=== PATIENT | female | born 1970 | race Two or more races ===

== ENCOUNTER 2022-10-25 20:02 | Inpatient (IN) | payer MEDICAID, OTHER ==
[~2022-10-25] VITALS: Ht 167.6 cm; Wt 252.4 kg
[2022-10-25] MEDS ORDERED: IPRATROPIUM BROM 0.5 MG/2.5ML INH SOL NEB ONE (20:15)
[2022-10-25] MEDS ORDERED: ALBUTEROL SULF 2.5 MG/0.5ML(0.5%) NEB SOLN NEB ONE (20:15)
[2022-10-25] MEDS ORDERED: IOHEXOL 300 MG/ML 100ML BOTTLE IJ ONE (20:21)
[2022-10-25 20:55] LABS: Basophils # (auto) 0 10 ^3/uL (0-0.2); Eosinophils # (auto) 0.5 10 ^3/uL (0-0.8); Eosinophils % (auto) 5.3 % (0.0-7.0); Hemoglobin 14.4 g/dL (12.2-16.2); Lymphocytes # (auto) 1.5 10 ^3/uL (0.4-5.4); Mean Corpuscular Volume 81.4 fL (80.0-100.0); Neutrophils # (auto) 5.7 10 ^3/uL (1.6-8.6)
[2022-10-25 20:57] LABS: Basophils % (auto) 0.3 % (0.0-2.0); Hematocrit 44.8 % (36.0-46.0); Lymphocytes % (auto) 17.2 % (10.0-50.0); Mean Corpuscular Hemoglobin 26.2 pg (28.0-32.0); Mean Corpuscular Hgb Conc. 32.2 g/dL (32.0-36.0); Monocytes # (auto) 0.9 10 ^3/uL (0-1.3); Monocytes % (auto) 10.6 % (0.0-12.0); Neutrophils % (auto) 66.6 % (37.0-80.0); Nucleated Red Blood Cells % 0.1 %; Red Cell Distribution Width 15.3 % (11.8-14.3); White Blood Cell 8.6 10^3/uL (4.4-10.8)
[2022-10-25 21:03] LABS: Albumin 2.8 g/dL (3.4-5.0); Calcium 8.3 mg/dL (8.5-10.1); Potassium 4.1 mmol/L (3.5-5.1)
[2022-10-25 21:06] LABS: Bilirubin, Total 1.4 mg/dL (0.2-1.0); Total Protein 7.5 g/dL (6.4-8.2)
[2022-10-25 22:11] LABS: Urine Bacteria FEW /hpf (None Seen); Urine Blood 2+ /uL (Negative); Urine Mucus FEW (None Seen); Urine Specific Gravity 1.033 (1.001-1.035); Urine WBC 6 /hpf (0 - 5)
[2022-10-26] MEDS ORDERED: ONDANSETRON HCL 4 MG/2 ML VIAL IV PRN (04:00)
[2022-10-26] MEDS ORDERED: IPRATROPIUM BROM 0.5 MG/2.5ML INH SOL NEB PRN (04:00)
[2022-10-26] MEDS ORDERED: NITROGLYCERIN 0.4 MG SL TAB SL PRN (04:00)
[2022-10-26] MEDS ORDERED: ALBUTEROL SULF 2.5 MG/0.5ML(0.5%) NEB SOLN NEB PRN (04:00)
[2022-10-26] MEDS ORDERED: MORPHINE SULFATE INJ 2 MG/ml SYRG IV PRN ×2 (04:00)
[2022-10-26] MEDS ORDERED: ACETAMINOPHEN 325 MG TAB PO PRN (04:00)
[2022-10-26] MEDS ORDERED: DOCUSATE SOD 100 MG CAP PO PRN (04:00)
[2022-10-26 05:58] LABS: Basophils # (auto) 0 10 ^3/uL (0-0.2); Basophils % (auto) 0.3 % (0.0-2.0); Eosinophils # (auto) 0.4 10 ^3/uL (0-0.8); Lymphocytes # (auto) 1.1 10 ^3/uL (0.4-5.4); Lymphocytes % (auto) 11.6 % (10.0-50.0); Mean Corpuscular Hgb Conc. 31.4 g/dL (32.0-36.0); Monocytes # (auto) 1.1 10 ^3/uL (0-1.3); Nucleated Red Blood Cells % 0.1 %
[2022-10-26 06:00] LABS: Eosinophils % (auto) 4.5 % (0.0-7.0); Hematocrit 45.5 % (36.0-46.0); Hemoglobin 14.3 g/dL (12.2-16.2); Mean Corpuscular Hemoglobin 26.6 pg (28.0-32.0); Mean Corpuscular Volume 84.7 fL (80.0-100.0); Monocytes % (auto) 11.3 % (0.0-12.0); Neutrophils % (auto) 72.3 % (37.0-80.0); Red Blood Cells 5.37 10^6/uL (4.0-5.20); Red Cell Distribution Width 15.5 % (11.8-14.3); White Blood Cell 9.6 10^3/uL (4.4-10.8)
[2022-10-26] MEDS: SODIUM CHLOR 0.9% PF (SALINE LOCK) 10ML VIAL/SYR IV SCH ×3 (06:05→22:19)
[2022-10-26 06:29] LABS: Potassium 4.5 mmol/L (3.5-5.1)
[2022-10-26 06:35] LABS: Albumin 2.6 g/dL (3.4-5.0); BUN/Creatinine Ratio 24.1 (10.0-20.0); Bilirubin, Total 1.3 mg/dL (0.2-1.0); Total Protein 7.4 g/dL (6.4-8.2)
[2022-10-26 08:45] VITALS: BP 147/80
[2022-10-26] MEDS: FAMOTIDINE (10MG/ML) 2ML VL IV SCH ×2 (09:56→22:18)
[2022-10-26] MEDS: cefTRIAXone 1GM/50ML D5W 50 ML IV SCH (09:56)
[2022-10-26] MEDS ORDERED: ENOXAPARIN SOD 40 MG/0.4 ML SYRINGE SC SCH (10:00)
[2022-10-26] MEDS ORDERED: ENOXAPARIN SOD 100 MG/1 ML SYRINGE SC SCH (10:00)
[2022-10-26] MEDS: FUROSEMIDE 40 MG/4 ML VIAL IV SCH ×2 (10:03→22:18)
[2022-10-26] MEDS ORDERED: VANCOMYCIN PER PHARMACY 0 MG IV SCH (14:00)
[2022-10-26] MEDS: VANCOMYCIN 1GM/250ML 250 ML IV SCH ×2 (14:11→22:17)
[2022-10-26] MEDS ORDERED: VANCOMYCIN 500 MG in D5W 5% 100 ML IV SCH (22:00)
[2022-10-26] MEDS: HYDROcodone-ACET 5/325MG TAB PO PRN (22:18)
[2022-10-26] MEDS: NYSTATIN TOPICAL POWDER 15GM TOP SCH (22:18)
[2022-10-26] MEDS: ENOXAPARIN SOD 60 MG/0.6 ML SYRINGE SC SCH (22:18)
[2022-10-27] MEDS: SODIUM CHLOR 0.9% PF (SALINE LOCK) 10ML VIAL/SYR IV SCH ×2 (06:22→14:03)
[2022-10-27] MEDS: VANCOMYCIN 1GM/250ML 250 ML IV SCH ×3 (06:25→23:45)
[2022-10-27] MEDS: FUROSEMIDE 40 MG/4 ML VIAL IV SCH ×2 (08:10→23:44)
[2022-10-27] MEDS: ENOXAPARIN SOD 60 MG/0.6 ML SYRINGE SC SCH ×2 (08:10→23:43)
[2022-10-27] MEDS: cefTRIAXone 1GM/50ML D5W 50 ML IV SCH (08:10)
[2022-10-27] MEDS: FAMOTIDINE (10MG/ML) 2ML VL IV SCH ×2 (08:10→23:43)
[2022-10-27] MEDS: NYSTATIN TOPICAL POWDER 15GM TOP SCH (08:11)
[2022-10-27 13:51] LABS: Basophils # (auto) 0 10 ^3/uL (0-0.2); Eosinophils # (auto) 0.2 10 ^3/uL (0-0.8); Hemoglobin 13.5 g/dL (12.2-16.2)
[2022-10-27 13:54] LABS: Basophils % (auto) 0.3 % (0.0-2.0); Eosinophils % (auto) 3.1 % (0.0-7.0); Hematocrit 43.5 % (36.0-46.0); Lymphocytes # (auto) 0.7 10 ^3/uL (0.4-5.4); Lymphocytes % (auto) 9.3 % (10.0-50.0); Mean Corpuscular Hemoglobin 26.1 pg (28.0-32.0); Mean Corpuscular Hgb Conc. 31.1 g/dL (32.0-36.0); Mean Corpuscular Volume 83.9 fL (80.0-100.0); Monocytes # (auto) 0.9 10 ^3/uL (0-1.3); Monocytes % (auto) 11.6 % (0.0-12.0); Neutrophils # (auto) 5.8 10 ^3/uL (1.6-8.6); Neutrophils % (auto) 75.7 % (37.0-80.0); Nucleated Red Blood Cells % 0.2 %; Red Blood Cells 5.19 10^6/uL (4.0-5.20); Red Cell Distribution Width 15.3 % (11.8-14.3); White Blood Cell 7.7 10^3/uL (4.4-10.8)
[2022-10-27 14:13] LABS: Albumin 2.6 g/dL (3.4-5.0); Potassium 3.9 mmol/L (3.5-5.1)
[2022-10-27 14:18] LABS: BUN/Creatinine Ratio 14.3 (10.0-20.0); Bilirubin, Total 1.2 mg/dL (0.2-1.0); Total Protein 7.4 g/dL (6.4-8.2)
[2022-10-27 22:00] VITALS: BP 100/68
[2022-10-27 22:01] VITALS: BP 112/51
[2022-10-28] MEDS: NYSTATIN TOPICAL POWDER 15GM TOP SCH ×3 (00:01→22:20)
[2022-10-28] MEDS: VANCOMYCIN 1GM/250ML 250 ML IV SCH ×3 (06:02→22:18)
[2022-10-28] MEDS: SODIUM CHLOR 0.9% PF (SALINE LOCK) 10ML VIAL/SYR IV SCH ×4 (06:11→22:20)
[2022-10-28 08:00] VITALS: BP 139/70
[2022-10-28 09:00] VITALS: BP 115/53
[2022-10-28] MEDS: ENOXAPARIN SOD 60 MG/0.6 ML SYRINGE SC SCH ×2 (09:26→22:20)
[2022-10-28] MEDS: cefTRIAXone 1GM/50ML D5W 50 ML IV SCH (09:26)
[2022-10-28] MEDS: FUROSEMIDE 40 MG/4 ML VIAL IV SCH ×2 (09:27→22:20)
[2022-10-28] MEDS: FAMOTIDINE (10MG/ML) 2ML VL IV SCH ×2 (09:27→22:19)
[2022-10-28 13:00] VITALS: BP 110/53
[2022-10-28 17:00] VITALS: BP 117/65
[2022-10-28] MEDS: ALBUTEROL SULF 2.5 MG/0.5ML(0.5%) NEB SOLN NEB SCH (17:45)
[2022-10-28] MEDS: IPRATROPIUM BROM 0.5 MG/2.5ML INH SOL NEB SCH (17:45)
[2022-10-28 21:35] VITALS: BP 132/64
[2022-10-29 04:55] VITALS: BP 113/60
[2022-10-29] MEDS: VANCOMYCIN 1GM/250ML 250 ML IV SCH ×3 (05:57→22:19)
[2022-10-29] MEDS: SODIUM CHLOR 0.9% PF (SALINE LOCK) 10ML VIAL/SYR IV SCH ×3 (05:57→22:20)
[2022-10-29] MEDS: ALBUTEROL SULF 2.5 MG/0.5ML(0.5%) NEB SOLN NEB SCH ×3 (06:34→19:25)
[2022-10-29] MEDS: IPRATROPIUM BROM 0.5 MG/2.5ML INH SOL NEB SCH ×3 (06:34→19:25)
[2022-10-29 09:00] VITALS: BP 124/61
[2022-10-29] MEDS: FUROSEMIDE 40 MG/4 ML VIAL IV SCH ×2 (09:13→22:19)
[2022-10-29] MEDS: ENOXAPARIN SOD 60 MG/0.6 ML SYRINGE SC SCH ×2 (09:14→22:20)
[2022-10-29] MEDS: FAMOTIDINE (10MG/ML) 2ML VL IV SCH ×2 (09:14→22:20)
[2022-10-29] MEDS: cefTRIAXone 1GM/50ML D5W 50 ML IV SCH (09:15)
[2022-10-29] MEDS: NYSTATIN TOPICAL POWDER 15GM TOP SCH ×2 (10:00→22:20)
[2022-10-29 13:00] VITALS: BP 122/61
[2022-10-29] MEDS: HYDROcodone-ACET 5/325MG TAB PO PRN (14:35)
[2022-10-29 17:07] VITALS: BP 116/62
[2022-10-29 18:00] VITALS: BP 116/62
[2022-10-29 22:00] VITALS: BP 112/61
[2022-10-30 05:00] VITALS: BP 116/64
[2022-10-30] MEDS: VANCOMYCIN 1GM/250ML 250 ML IV SCH ×3 (05:42→22:00)
[2022-10-30] MEDS: SODIUM CHLOR 0.9% PF (SALINE LOCK) 10ML VIAL/SYR IV SCH ×3 (05:42→22:16)
[2022-10-30] MEDS: IPRATROPIUM BROM 0.5 MG/2.5ML INH SOL NEB SCH ×3 (06:42→18:27)
[2022-10-30] MEDS: ALBUTEROL SULF 2.5 MG/0.5ML(0.5%) NEB SOLN NEB SCH ×3 (06:43→18:27)
[2022-10-30 09:11] VITALS: BP 121/60
[2022-10-30] MEDS: FAMOTIDINE (10MG/ML) 2ML VL IV SCH ×2 (09:57→22:00)
[2022-10-30] MEDS: FUROSEMIDE 40 MG/4 ML VIAL IV SCH ×2 (09:57→22:00)
[2022-10-30] MEDS: cefTRIAXone 1GM/50ML D5W 50 ML IV SCH (09:57)
[2022-10-30] MEDS: NYSTATIN TOPICAL POWDER 15GM TOP SCH ×2 (09:58→22:55)
[2022-10-30] MEDS: HYDROcodone-ACET 5/325MG TAB PO PRN ×2 (09:58→23:52)
[2022-10-30] MEDS: ENOXAPARIN SOD 60 MG/0.6 ML SYRINGE SC SCH ×2 (09:58→22:16)
[2022-10-30 13:07] VITALS: BP 115/62
[2022-10-30 17:29] VITALS: BP 121/67
[2022-10-30 23:38] VITALS: BP 134/64
[2022-10-31 05:05] VITALS: BP 122/67
[2022-10-31] MEDS: SODIUM CHLOR 0.9% PF (SALINE LOCK) 10ML VIAL/SYR IV SCH ×2 (05:12→14:00)
[2022-10-31] MEDS: VANCOMYCIN 1GM/250ML 250 ML IV SCH ×2 (05:12→14:00)
[2022-10-31] MEDS: ALBUTEROL SULF 2.5 MG/0.5ML(0.5%) NEB SOLN NEB SCH ×3 (06:57→17:49)
[2022-10-31] MEDS: IPRATROPIUM BROM 0.5 MG/2.5ML INH SOL NEB SCH ×3 (06:57→17:49)
[2022-10-31] MEDS: HYDROcodone-ACET 5/325MG TAB PO PRN (07:16)
[2022-10-31 08:30] VITALS: BP 111/59
[2022-10-31] MEDS ORDERED: PRED20TA2 PO (09:41)
[2022-10-31] MEDS ORDERED: MYC15TP TOP ×2 (09:41)
[2022-10-31] MEDS ORDERED: LEVO500T31 PO (09:41)
[2022-10-31] MEDS: FUROSEMIDE 40 MG/4 ML VIAL IV SCH (10:00)
[2022-10-31] MEDS: cefTRIAXone 1GM/50ML D5W 50 ML IV SCH (10:00)
[2022-10-31] MEDS: ENOXAPARIN SOD 60 MG/0.6 ML SYRINGE SC SCH (10:00)
[2022-10-31] MEDS: FAMOTIDINE (10MG/ML) 2ML VL IV SCH (10:00)
[2022-10-31 13:00] VITALS: BP 125/77
[2022-10-31] MEDS: NYSTATIN TOPICAL POWDER 15GM TOP SCH (13:30)
[2022-10-31 14:24] VITALS: BP 125/77
[2022-10-31 17:00] VITALS: BP 132/66
== END 2022-10-31 20:35 | disposition home or self-care (01) | DRG 383 ==
LOC: EDBD 20:02 → EDSEX 20:02 → ER 20:02 → OVERFLOW 10-26 04:02 → EAST 10-27 21:00
PROVIDERS: ADMIT Nurse Practitioner Family; ATTEND Family Medicine
PROC: 05HD33Z Insertion of Infusion Device into Right Cephalic Vein, Percutaneous Approach (ICD-10-PCS; principal; 2022-10-27)
PROC: B54MZZA Ultrasonography of Right Upper Extremity Veins, Guidance (ICD-10-PCS; 2022-10-27)
DX: L03.311 Cellulitis of abdominal wall (principal); J96.01 Acute respiratory failure with hypoxia; J15.6 Pneumonia due to other Gram-negative bacteria; L03.115 Cellulitis of right lower limb; E88.09 Other disorders of plasma-protein metabolism, not elsewhere classified; L03.116 Cellulitis of left lower limb; Z68.45 Body mass index [BMI] 70 or greater, adult; I50.9 Heart failure, unspecified; E66.01 Morbid (severe) obesity due to excess calories; J45.909 Unspecified asthma, uncomplicated; J98.11 Atelectasis; Z20.822 Contact with and (suspected) exposure to COVID-19; R10.9 Unspecified abdominal pain; Z74.01 Bed confinement status
CPT/HCPCS: 36415; 36600; 71045; 74018; 80053; 80202; 81001; 82805; 82962; 83690; 83880; 84484; 85025; 87426; 93005; 93970; 94640; G0378; J0696; J3490

== ENCOUNTER 2022-11-01 13:17 | Inpatient (IN) | payer MEDICAID ==
[~2022-11-01] VITALS: Ht 175.3 cm; Wt 204.9 kg
[~2022-11-01 13:17] MED LIST: LEVO500T31 PO; MYC15TP TOP; PRED20TA2 PO
[2022-11-01] MEDS ORDERED: SODIUM CHLORIDE 0.9% IV ONE (14:15)
[2022-11-01 14:43] LABS: Basophils # (auto) 0 10 ^3/uL (0-0.2); Monocytes # (auto) 0.8 10 ^3/uL (0-1.3)
[2022-11-01 14:45] LABS: Basophils % (auto) 0.6 % (0.0-2.0); Eosinophils # (auto) 0.4 10 ^3/uL (0-0.8); Lymphocytes # (auto) 1.1 10 ^3/uL (0.4-5.4); Lymphocytes % (auto) 14.2 % (10.0-50.0); Mean Corpuscular Hemoglobin 26.6 pg (28.0-32.0); Mean Corpuscular Hgb Conc. 32.6 g/dL (32.0-36.0); Mean Corpuscular Volume 81.5 fL (80.0-100.0); Monocytes % (auto) 10.3 % (0.0-12.0); Neutrophils # (auto) 5.1 10 ^3/uL (1.6-8.6); Neutrophils % (auto) 68.9 % (37.0-80.0); Nucleated Red Blood Cells % 0.2 %; Red Blood Cells 5.28 10^6/uL (4.0-5.20); White Blood Cell 7.4 10^3/uL (4.4-10.8)
[2022-11-01 14:59] LABS: INR 1.11 (0.9-1.15); Partial Thromboplastin Time 29.6 sec (24.6-33.4)
[2022-11-01] MEDS ORDERED: PIPERACILLIN-TAZOB 3.375GM 100 ML IV ONE (15:00)
[2022-11-01] MEDS ORDERED: VANCOMYCIN PER PHARMACY 0 MG IV SCH (15:15)
[2022-11-01 15:35] LABS: Albumin 2.9 g/dL (3.4-5.0); Calcium 9.4 mg/dL (8.5-10.1); Potassium 4.2 mmol/L (3.5-5.1)
[2022-11-01 15:38] LABS: Bilirubin, Total 1.5 mg/dL (0.2-1.0); Total Protein 8.3 g/dL (6.4-8.2)
[2022-11-01] MEDS: VANCOMYCIN 1GM/250ML 250 ML IV SCH ×2 (17:10→18:23)
[2022-11-01] MEDS ORDERED: NYSTATIN TOPICAL POWDER 15GM TOP ONE (19:15)
[2022-11-01] MEDS: PIPERACILLIN-TAZOB 3.375GM 100 ML IV SCH (21:13)
[2022-11-01] MEDS ORDERED: SODIUM CHLORIDE 0.9% 1,000 ML IV SCH (22:00)
[2022-11-01] MEDS ORDERED: DOCUSATE SOD 100 MG CAP PO PRN (22:00)
[2022-11-01] MEDS ORDERED: ALBUTEROL SULF 2.5 MG/0.5ML(0.5%) NEB SOLN NEB PRN (22:00)
[2022-11-01] MEDS ORDERED: HYDROcodone-ACET 5/325MG TAB PO PRN (22:00)
[2022-11-01] MEDS ORDERED: IPRATROPIUM BROM 0.5 MG/2.5ML INH SOL NEB PRN (22:00)
[2022-11-01] MEDS ORDERED: VANCOMYCIN 1GM/250ML 250 ML IV SCH (22:00)
[2022-11-01] MEDS ORDERED: ONDANSETRON HCL 4 MG/2 ML VIAL IV PRN (22:00)
[2022-11-01 22:39] VITALS: BP 105/47
[2022-11-01] MEDS: methylPREDNISolone SOD SUCC 40 MG/ML VL IV SCH (22:42)
[2022-11-01] MEDS: HEPARIN SODIUM (PORCINE) 5000 UNITS/ML 1ML VIAL SC SCH (22:43)
[2022-11-01] MEDS: FAMOTIDINE (10MG/ML) 2ML VL IV SCH (22:43)
[2022-11-02] MEDS ORDERED: NITROGLYCERIN 0.4 MG SL TAB SL PRN
[2022-11-02] MEDS ORDERED: MORPHINE SULFATE INJ 2 MG/ml SYRG IV PRN
[2022-11-02] MEDS ORDERED: FUROSEMIDE 40 MG/4 ML VIAL IV ONE
[2022-11-02] MEDS: VANCOMYCIN 1GM/250ML 250 ML IV SCH ×3 (01:10→18:44)
[2022-11-02 02:16] LABS: Urine Bacteria FEW /hpf (None Seen); Urine Blood 2+ /uL (Negative); Urine Specific Gravity 1.007 (1.001-1.035); Urine WBC 3 /hpf (0 - 5)
[2022-11-02] MEDS: methylPREDNISolone SOD SUCC 40 MG/ML VL IV SCH (05:33)
[2022-11-02] MEDS: PIPERACILLIN-TAZOB 3.375GM 100 ML IV SCH ×4 (05:38→21:42)
[2022-11-02 06:15] LABS: Eosinophils # (auto) 0 10 ^3/uL (0-0.8); Lymphocytes % (auto) 4.8 % (10.0-50.0); Monocytes # (auto) 0.2 10 ^3/uL (0-1.3); White Blood Cell 7.4 10^3/uL (4.4-10.8)
[2022-11-02 06:17] LABS: Basophils # (auto) 0 10 ^3/uL (0-0.2); Basophils % (auto) 0.1 % (0.0-2.0); Eosinophils % (auto) 0.2 % (0.0-7.0); Hematocrit 44.5 % (36.0-46.0); Hemoglobin 14.3 g/dL (12.2-16.2); Lymphocytes # (auto) 0.4 10 ^3/uL (0.4-5.4); Mean Corpuscular Hemoglobin 26.4 pg (28.0-32.0); Mean Corpuscular Volume 82.5 fL (80.0-100.0); Monocytes % (auto) 2.5 % (0.0-12.0); Neutrophils # (auto) 6.9 10 ^3/uL (1.6-8.6); Neutrophils % (auto) 92.4 % (37.0-80.0); Nucleated Red Blood Cells % 0.1 %; Red Cell Distribution Width 14.8 % (11.8-14.3)
[2022-11-02 06:29] LABS: Albumin 2.7 g/dL (3.4-5.0); Calcium 9.2 mg/dL (8.5-10.1); Potassium 4.2 mmol/L (3.5-5.1)
[2022-11-02 06:34] LABS: BUN/Creatinine Ratio 15.4 (10.0-20.0); Bilirubin, Total 1.4 mg/dL (0.2-1.0); Total Protein 7.8 g/dL (6.4-8.2)
[2022-11-02] MEDS: HEPARIN SODIUM (PORCINE) 5000 UNITS/ML 1ML VIAL SC SCH ×2 (09:57→23:18)
[2022-11-02] MEDS: FAMOTIDINE (10MG/ML) 2ML VL IV SCH ×2 (09:57→23:08)
[2022-11-02] MEDS ORDERED: FUROSEMIDE 40 MG/4 ML VIAL IV SCH ×2 (10:00→22:00)
[2022-11-02 22:00] VITALS: BP 121/55
[2022-11-02] MEDS ORDERED: IBUP800T26 PO (23:12)
[2022-11-02] MEDS ORDERED: ERGO1CAP12 PO (23:12)
[2022-11-03] MEDS: VANCOMYCIN 1GM/250ML 250 ML IV SCH ×2 (01:20→09:18)
[2022-11-03] MEDS: PIPERACILLIN-TAZOB 3.375GM 100 ML IV SCH ×3 (03:34→20:00)
[2022-11-03 05:00] VITALS: BP 122/58
[2022-11-03] MEDS ORDERED: PNEUMOCOCCAL VACC POLYS 25 MCG/0.5 ML VIAL IM SCH (05:45)
[2022-11-03 07:30] VITALS: BP 134/73
[2022-11-03 09:00] VITALS: BP 134/73
[2022-11-03] MEDS ORDERED: ENOXAPARIN SOD 40 MG/0.4 ML SYRINGE SC SCH (10:00)
[2022-11-03 13:00] VITALS: BP 130/58
[2022-11-03 14:33] LABS: Hepatitis C Antibody Negative (Negative)
[2022-11-03] MEDS: ASPirin 81 mg TAB PO SCH (15:00)
[2022-11-03] MEDS: methylPREDNISolone SOD SUCC 40 MG/ML VL IV SCH (15:00)
[2022-11-03] MEDS: FUROSEMIDE INJECTION 100 MG in D5W 5% 100 ML IV SCH (15:05)
[2022-11-03 16:48] VITALS: BP 123/77
[2022-11-03] MEDS: DOXYCYCLINE 100 MG TAB/CAP PO SCH (21:27)
[2022-11-03 22:00] VITALS: BP 121/67
[2022-11-04] VITALS (8 sets, daily range): BP systolic 124–134; BP diastolic 53–75
[2022-11-04] MEDS: PIPERACILLIN-TAZOB 3.375GM 100 ML IV SCH ×4 (02:46→20:37)
[2022-11-04] MEDS: FUROSEMIDE INJECTION 100 MG in D5W 5% 100 ML IV SCH ×2 (03:03→10:03)
[2022-11-04 09:38] LABS: Basophils # (auto) 0 10 ^3/uL (0-0.2); Basophils % (auto) 0.2 % (0.0-2.0); Eosinophils # (auto) 0 10 ^3/uL (0-0.8); Lymphocytes # (auto) 1.2 10 ^3/uL (0.4-5.4); Neutrophils # (auto) 6.6 10 ^3/uL (1.6-8.6); White Blood Cell 8.8 10^3/uL (4.4-10.8)
[2022-11-04 09:44] LABS: Eosinophils % (auto) 0.2 % (0.0-7.0); Hematocrit 44.9 % (36.0-46.0); Hemoglobin 14.2 g/dL (12.2-16.2); Lymphocytes % (auto) 13.4 % (10.0-50.0); Mean Corpuscular Hemoglobin 26.5 pg (28.0-32.0); Mean Corpuscular Hgb Conc. 31.6 g/dL (32.0-36.0); Mean Corpuscular Volume 83.6 fL (80.0-100.0); Neutrophils % (auto) 75.2 % (37.0-80.0); Nucleated Red Blood Cells % 0.1 %; Red Blood Cells 5.36 10^6/uL (4.0-5.20); Red Cell Distribution Width 15.7 % (11.8-14.3)
[2022-11-04] MEDS: DOXYCYCLINE 100 MG TAB/CAP PO SCH ×2 (10:17→20:37)
[2022-11-04] MEDS: ASPirin 81 mg TAB PO SCH (10:17)
[2022-11-04] MEDS: methylPREDNISolone SOD SUCC 40 MG/ML VL IV SCH (10:18)
[2022-11-04 12:17] LABS: Potassium 4.8 mmol/L (3.5-5.1)
[2022-11-04 12:19] LABS: BUN/Creatinine Ratio 13.8 (10.0-20.0); Calcium 9.2 mg/dL (8.5-10.1)
[2022-11-04] MEDS: ACETAMINOPHEN 325 MG TAB PO PRN (20:37)
[2022-11-05] MEDS: PIPERACILLIN-TAZOB 3.375GM 100 ML IV SCH ×4 (01:46→20:53)
[2022-11-05 04:45] VITALS: BP 120/72
[2022-11-05] MEDS: FUROSEMIDE INJECTION 100 MG in D5W 5% 100 ML IV SCH ×2 (05:15→12:48)
[2022-11-05 06:37] LABS: Basophils # (auto) 0 10 ^3/uL (0-0.2); Basophils % (auto) 0.2 % (0.0-2.0); Eosinophils # (auto) 0 10 ^3/uL (0-0.8); Eosinophils % (auto) 0.5 % (0.0-7.0); Hematocrit 43.9 % (36.0-46.0); Hemoglobin 13.8 g/dL (12.2-16.2); Lymphocytes # (auto) 1.2 10 ^3/uL (0.4-5.4); Lymphocytes % (auto) 16.6 % (10.0-50.0); Mean Corpuscular Hemoglobin 26.2 pg (28.0-32.0); Mean Corpuscular Hgb Conc. 31.5 g/dL (32.0-36.0); Mean Corpuscular Volume 83.2 fL (80.0-100.0); Monocytes # (auto) 1.2 10 ^3/uL (0-1.3); Monocytes % (auto) 16.5 % (0.0-12.0); Neutrophils # (auto) 4.8 10 ^3/uL (1.6-8.6); Neutrophils % (auto) 66.2 % (37.0-80.0); Nucleated Red Blood Cells % 0.1 %; Red Blood Cells 5.28 10^6/uL (4.0-5.20); Red Cell Distribution Width 15.5 % (11.8-14.3); White Blood Cell 7.3 10^3/uL (4.4-10.8)
[2022-11-05 06:45] LABS: Calcium 8.7 mg/dL (8.5-10.1); Potassium 3.6 mmol/L (3.5-5.1)
[2022-11-05] MEDS: ASPirin 81 mg TAB PO SCH (08:40)
[2022-11-05] MEDS: methylPREDNISolone SOD SUCC 40 MG/ML VL IV SCH ×2 (08:40→10:00)
[2022-11-05] MEDS: DOXYCYCLINE 100 MG TAB/CAP PO SCH ×2 (08:40→20:53)
[2022-11-05] MEDS ORDERED: POTASSIUM EFFERVESENT TAB 25 MEQ PO ONE (09:15)
[2022-11-05] MEDS: METOPROLOL SUCCINATE XL 50 MG TAB PO SCH (10:49)
[2022-11-05 13:00] VITALS: BP 144/74
[2022-11-05 16:21] VITALS: BP_SYST 122; BP_SYST 143; BP_DIAS 71; BP_DIAS 81
[2022-11-05 20:00] VITALS: BP 128/72
[2022-11-05] MEDS: SACUBITRIL-VALSARTAN 24mg/26mg TAB PO SCH (20:53)
[2022-11-05 22:00] VITALS: BP 128/72
[2022-11-06] MEDS: PIPERACILLIN-TAZOB 3.375GM 100 ML IV SCH ×2 (02:30→08:24)
[2022-11-06 05:00] VITALS: BP 136/64
[2022-11-06] MEDS: EMPAGLIFLOZIN 10 MG TAB PO SCH (06:13)
[2022-11-06] MEDS: FUROSEMIDE INJECTION 100 MG in D5W 5% 100 ML IV SCH (06:14)
[2022-11-06 08:00] VITALS: BP 136/64
[2022-11-06 08:59] LABS: Basophils # (auto) 0 10 ^3/uL (0-0.2); Basophils % (auto) 0.2 % (0.0-2.0); Eosinophils # (auto) 0.2 10 ^3/uL (0-0.8); Eosinophils % (auto) 1.6 % (0.0-7.0); Hematocrit 47.5 % (36.0-46.0); Hemoglobin 14.9 g/dL (12.2-16.2); Lymphocytes # (auto) 1.7 10 ^3/uL (0.4-5.4); Lymphocytes % (auto) 17.5 % (10.0-50.0); Mean Corpuscular Hemoglobin 26.1 pg (28.0-32.0); Mean Corpuscular Hgb Conc. 31.4 g/dL (32.0-36.0); Monocytes # (auto) 1.2 10 ^3/uL (0-1.3); Monocytes % (auto) 12.6 % (0.0-12.0); Neutrophils # (auto) 6.5 10 ^3/uL (1.6-8.6); Neutrophils % (auto) 68.1 % (37.0-80.0); Nucleated Red Blood Cells % 0.2 %; Red Blood Cells 5.73 10^6/uL (4.0-5.20); Red Cell Distribution Width 15.5 % (11.8-14.3); White Blood Cell 9.5 10^3/uL (4.4-10.8)
[2022-11-06 09:00] VITALS: BP 126/72
[2022-11-06 09:12] LABS: BUN/Creatinine Ratio 16.4 (10.0-20.0)
[2022-11-06] MEDS: methylPREDNISolone SOD SUCC 40 MG/ML VL IV SCH (10:05)
[2022-11-06] MEDS: METOPROLOL SUCCINATE XL 50 MG TAB PO SCH (10:06)
[2022-11-06] MEDS: ASPirin 81 mg TAB PO SCH (10:06)
[2022-11-06] MEDS: SACUBITRIL-VALSARTAN 24mg/26mg TAB PO SCH ×2 (10:07→21:15)
[2022-11-06 13:00] VITALS: BP 116/65
[2022-11-06] MEDS: FLORASTOR (S. BOULARDII) 250 MG CAP PO SCH (14:18)
[2022-11-06] MEDS: FUROSEMIDE 40 MG/4 ML VIAL IV SCH (18:12)
[2022-11-06 22:00] VITALS: BP 129/66
[2022-11-07] VITALS (7 sets, daily range): BP systolic 114–136; BP diastolic 61–78
[2022-11-07] MEDS: FUROSEMIDE 40 MG/4 ML VIAL IV SCH ×2 (05:59→18:35)
[2022-11-07] MEDS: EMPAGLIFLOZIN 10 MG TAB PO SCH (05:59)
[2022-11-07 06:46] LABS: BUN/Creatinine Ratio 21.8 (10.0-20.0); Magnesium 2.2 mg/dL (1.6-2.6); Potassium 3.6 mmol/L (3.5-5.1)
[2022-11-07] MEDS: methylPREDNISolone SOD SUCC 40 MG/ML VL IV SCH (10:07)
[2022-11-07] MEDS: SACUBITRIL-VALSARTAN 24mg/26mg TAB PO SCH ×2 (10:07→22:01)
[2022-11-07] MEDS: METOPROLOL SUCCINATE XL 50 MG TAB PO SCH (10:10)
[2022-11-07] MEDS: ASPirin 81 mg TAB PO SCH (10:12)
[2022-11-07] MEDS: FLORASTOR (S. BOULARDII) 250 MG CAP PO SCH (10:12)
[2022-11-08] VITALS (8 sets, daily range): BP systolic 114–134; BP diastolic 61–69
[2022-11-08] MEDS: FUROSEMIDE 40 MG/4 ML VIAL IV SCH ×2 (05:44→18:04)
[2022-11-08] MEDS: EMPAGLIFLOZIN 10 MG TAB PO SCH (08:15)
[2022-11-08] MEDS: ASPirin 81 mg TAB PO SCH (09:42)
[2022-11-08] MEDS: FLORASTOR (S. BOULARDII) 250 MG CAP PO SCH (09:43)
[2022-11-08] MEDS: SACUBITRIL-VALSARTAN 24mg/26mg TAB PO SCH ×2 (09:43→22:06)
[2022-11-08] MEDS: METOPROLOL SUCCINATE XL 50 MG TAB PO SCH (09:44)
[2022-11-08] MEDS: methylPREDNISolone SOD SUCC 40 MG/ML VL IV SCH (09:45)
[2022-11-09] MEDS: ACETAMINOPHEN 325 MG TAB PO PRN (00:31)
[2022-11-09 05:00] VITALS: BP_SYST 122; BP_SYST 131; BP_DIAS 66; BP_DIAS 74
[2022-11-09] MEDS: FUROSEMIDE 40 MG/4 ML VIAL IV SCH ×2 (06:06→18:06)
[2022-11-09] MEDS: EMPAGLIFLOZIN 10 MG TAB PO SCH (06:26)
[2022-11-09 09:00] VITALS: BP 140/77
[2022-11-09] MEDS: SACUBITRIL-VALSARTAN 24mg/26mg TAB PO SCH ×2 (09:36→21:55)
[2022-11-09] MEDS: FLORASTOR (S. BOULARDII) 250 MG CAP PO SCH (09:36)
[2022-11-09] MEDS: METOPROLOL SUCCINATE XL 50 MG TAB PO SCH (09:37)
[2022-11-09] MEDS: ASPirin 81 mg TAB PO SCH (09:38)
[2022-11-09] MEDS: methylPREDNISolone SOD SUCC 40 MG/ML VL IV SCH (09:38)
[2022-11-09 09:55] LABS: BUN/Creatinine Ratio 26.6 (10.0-20.0); Calcium 9.1 mg/dL (8.5-10.1); Magnesium 2.2 mg/dL (1.6-2.6); Potassium 4.1 mmol/L (3.5-5.1)
[2022-11-09 12:57] VITALS: BP 134/68
[2022-11-09 16:59] VITALS: BP 145/89
[2022-11-09 22:00] VITALS: BP 117/63
[2022-11-10 05:00] VITALS: BP 128/76
[2022-11-10] MEDS: FUROSEMIDE 40 MG/4 ML VIAL IV SCH ×2 (06:06→17:59)
[2022-11-10] MEDS: EMPAGLIFLOZIN 10 MG TAB PO SCH (06:54)
[2022-11-10] MEDS: METOPROLOL SUCCINATE XL 50 MG TAB PO SCH (09:14)
[2022-11-10] MEDS: FLORASTOR (S. BOULARDII) 250 MG CAP PO SCH (09:14)
[2022-11-10 09:15] VITALS: BP 134/74
[2022-11-10] MEDS: methylPREDNISolone SOD SUCC 40 MG/ML VL IV SCH (09:15)
[2022-11-10] MEDS: ASPirin 81 mg TAB PO SCH (09:15)
[2022-11-10] MEDS: SACUBITRIL-VALSARTAN 24mg/26mg TAB PO SCH ×2 (09:15→21:47)
[2022-11-10 13:00] VITALS: BP 132/76
[2022-11-10 17:00] VITALS: BP 131/76
[2022-11-10 21:30] VITALS: BP 133/71
[2022-11-11 05:00] VITALS: BP 140/79
[2022-11-11] MEDS: FUROSEMIDE 40 MG/4 ML VIAL IV SCH ×2 (06:14→18:03)
[2022-11-11] MEDS: EMPAGLIFLOZIN 10 MG TAB PO SCH (07:17)
[2022-11-11 08:54] VITALS: BP 135/73
[2022-11-11] MEDS: FLORASTOR (S. BOULARDII) 250 MG CAP PO SCH (09:29)
[2022-11-11] MEDS: SACUBITRIL-VALSARTAN 24mg/26mg TAB PO SCH ×2 (09:29→21:16)
[2022-11-11] MEDS: ASPirin 81 mg TAB PO SCH (09:29)
[2022-11-11] MEDS: METOPROLOL SUCCINATE XL 50 MG TAB PO SCH (09:30)
[2022-11-11 13:18] VITALS: BP 127/68
[2022-11-11 17:04] VITALS: BP 109/66
[2022-11-11 22:00] VITALS: BP 129/70
[2022-11-12 05:00] VITALS: BP 127/79
[2022-11-12] MEDS: FUROSEMIDE 40 MG/4 ML VIAL IV SCH ×2 (06:23→18:00)
[2022-11-12] MEDS: EMPAGLIFLOZIN 10 MG TAB PO SCH (06:23)
[2022-11-12 08:30] VITALS: BP 127/68
[2022-11-12] MEDS: METOPROLOL SUCCINATE XL 50 MG TAB PO SCH (10:00)
[2022-11-12] MEDS: FLORASTOR (S. BOULARDII) 250 MG CAP PO SCH (10:00)
[2022-11-12] MEDS: ASPirin 81 mg TAB PO SCH (10:00)
[2022-11-12] MEDS: SACUBITRIL-VALSARTAN 24mg/26mg TAB PO SCH ×2 (10:00→21:39)
[2022-11-12 10:11] LABS: Potassium 4.7 mmol/L (3.5-5.1)
[2022-11-12 11:10] LABS: BUN/Creatinine Ratio 30.1 (10.0-20.0); Magnesium 1.9 mg/dL (1.6-2.6)
[2022-11-12 12:30] VITALS: BP 123/72
[2022-11-12] MEDS ORDERED: SACU1TAB PO (13:15)
[2022-11-12] MEDS ORDERED: FURO1TAB33 PO (13:15)
[2022-11-12] MEDS ORDERED: METO25TA36 PO (13:15)
[2022-11-12] MEDS ORDERED: EMPA1TAB PO (13:15)
[2022-11-12 13:31] VITALS: BP 127/68
[2022-11-12 16:55] VITALS: BP 105/67
[2022-11-12 22:00] VITALS: BP 121/61
[2022-11-13 05:00] VITALS: BP 119/70
[2022-11-13] MEDS: EMPAGLIFLOZIN 10 MG TAB PO SCH (06:36)
[2022-11-13] MEDS ORDERED: FUROSEMIDE 40 MG TAB PO SCH (10:00)
== END 2022-11-13 06:55 | disposition home health service (06) | DRG 133 ==
LOC: EDBD 13:17 → ER 13:17 → TELE 23:50 → TELE-WESTW 11-02 22:30
PROVIDERS: ADMIT Nurse Practitioner Family; ATTEND Nurse Practitioner Acute Care
PROC: 0GBG3ZX Excision of Left Thyroid Gland Lobe, Percutaneous Approach, Diagnostic (ICD-10-PCS; 2022-11-04)
PROC: 5A09357 Assistance with Respiratory Ventilation, Less than 24 Consecutive Hours, Continuous Positive Airway Pressure (ICD-10-PCS; principal; 2022-11-05)
PROC: 5A1935Z Respiratory Ventilation, Less than 24 Consecutive Hours (ICD-10-PCS; 2022-11-06)
PROC: 0BH17EZ Insertion of Endotracheal Airway into Trachea, Via Natural or Artificial Opening (ICD-10-PCS; 2022-11-06)
PROC: 5A09357 Assistance with Respiratory Ventilation, Less than 24 Consecutive Hours, Continuous Positive Airway Pressure (ICD-10-PCS; 2022-11-09)
PROC: 5A09357 Assistance with Respiratory Ventilation, Less than 24 Consecutive Hours, Continuous Positive Airway Pressure (ICD-10-PCS; 2022-11-10)
PROC: 5A09357 Assistance with Respiratory Ventilation, Less than 24 Consecutive Hours, Continuous Positive Airway Pressure (ICD-10-PCS; 2022-11-11)
PROC: 5A09357 Assistance with Respiratory Ventilation, Less than 24 Consecutive Hours, Continuous Positive Airway Pressure (ICD-10-PCS; 2022-11-12)
DX: J96.21 Acute and chronic respiratory failure with hypoxia (principal); I50.43 Acute on chronic combined systolic (congestive) and diastolic (congestive) heart failure; J44.1 Chronic obstructive pulmonary disease with (acute) exacerbation; I42.0 Dilated cardiomyopathy; Z99.81 Dependence on supplemental oxygen; E66.2 Morbid (severe) obesity with alveolar hypoventilation; E88.09 Other disorders of plasma-protein metabolism, not elsewhere classified; Z68.45 Body mass index [BMI] 70 or greater, adult; K59.00 Constipation, unspecified; L03.113 Cellulitis of right upper limb; E04.2 Nontoxic multinodular goiter; I11.0 Hypertensive heart disease with heart failure; I34.0 Nonrheumatic mitral (valve) insufficiency; Z80.1 Family history of malignant neoplasm of trachea, bronchus and lung; Z83.3 Family history of diabetes mellitus
CPT/HCPCS: 36415; 36600; 51702; 71045; 76536; 76942; 80048; 80053; 80061; 80202; 81001; 82805; 83036; 83605; 83735; 83880; 84443; 84484; 85025; 85610; 85730; 86803; 87040; 87081; 87086; 87340; 88172; 93005; 93306; 94660; 94762; 96365; 97110; 97116; 97163; 97530; G0378; J2543; J3490; J7060